=== PATIENT | male | born 1965 | race Caucasian/White ===

== ENCOUNTER 2018-08-07 08:17 | Day surgery (SDC) | payer BC ==
--- NOTE | 2018-07-31 12:03 | RAD REPORT ---
EXAM DESCRIPTION: RAD - Chest Pa And Lat (2 Views) - 07/31/2018 11:56 am CLINICAL HISTORY: PREOP Chest pain. COMPARISON: No comparisons FINDINGS: The lungs are clear. The heart is normal in size. No displaced fractures. IMPRESSION: No acute or concerning finding suspected.
[2018-07-31 12:37] LABS: Potassium 4.3 mmol/L (3.5-5.1)
[2018-07-31 12:48] LABS: Absolute Lymphocytes (CBC) 1.9 K/uL (0.7-4.9); Absolute Monocytes 0.8 K/uL (0.1-1.3); Absolute Neutrophil 5.8 K/uL (1.8-8.0); Basophils % 0.5 % (0-1.3); Hematocrit 46.5 % (39.6-49.0); Lymphocytes % 21.6 % (15.3-44.8); MCH 31.9 pg (27.0-35.0); MCV 91.1 fL (80-100); MPV 9.3 fL (7.6-11.3); Monocytes % 9.1 % (3.3-12.3); RBC Red Blood Cell Count 5.11 M/uL (4.33-5.43)
--- OUTSIDE RECORDS SUMMARY | 2018-08-07 08:21 | XMS REPORT ---
:1965 Author Organization eClinicalWorks Care Team Providers Name Role Phone Juan Diego [facility] Provider Role Unavailable Allergies No Known Allergies Problems Problem Type Condition Code Onset Dates Condition Status Problem Erectile dysfunction N52.9 Active Problem Hypogonadism in male E29.1 Active Problem GERD (gastroesophageal reflux K21.9 Active disease) Assessment GERD (gastroesophageal reflux K21.9 Active disease) Assessment Hypogonadism in male E29.1 Active Assessment Erectile dysfunction N52.9 Active Medications Medication Code Code Instructions Start End Status Dosage System Date Date Viagra [facility] 73657068811 100 MG Orally October Inactive 1 tablet Once a day , as needed 2017 Prilosec [facility] 23925448473 20 MG Orally Active 1 capsule Once a day Cialis [facility] 78335130436 20 MG Orally October Active 1 tablet once a day 2017 Testosterone [facility] 70661451317 100 MG/ML Active 1 ml Cypionate Intramuscular Results No Known Results Summary Purpose eClinicalWorks Submission
--- OUTSIDE RECORDS SUMMARY | 2018-08-07 08:21 | XMS REPORT ---
:1965 Author Organization eClinicalWorks Care Team Providers Name Role Phone Juan Diego [facility] Provider Role Unavailable Allergies No Known Allergies Problems Problem Type Condition Code Onset Dates Condition Status Problem Erectile dysfunction N52.9 Active Problem Hypogonadism in male E29.1 Active Problem GERD (gastroesophageal reflux K21.9 Active disease) Medications Medication Code System Code Instructions Start End Date Status Dosage Date Scopolamine [facility] 72965590427 1 MG/3DAYS December 29, January 28, Active apply 1 Transdermal DO 2017 2017 patch 4 NOT CUT PATCH hours every 3 days as prior to needed event/acti vity. Results No Known Results Summary Purpose eClinicalWorks Submission
--- OUTSIDE RECORDS SUMMARY | 2018-08-07 08:21 | XMS REPORT ---
:1965 Author Organization eClinicalWorks Care Team Providers Name Role Phone Juan Diego [facility] Provider Role Unavailable Allergies No Known Allergies Problems Problem Type Condition Code Onset Dates Condition Status Assessment Prediabetes R73.03 Active Problem Erectile dysfunction N52.9 Active Problem Hypogonadism in male E29.1 Active Problem GERD (gastroesophageal reflux K21.9 Active disease) Assessment Erectile dysfunction N52.9 Active Assessment GERD (gastroesophageal reflux K21.9 Active disease) Assessment Hypogonadism in male E29.1 Active Medications Medication Code Code Instructions Start End Status Dosage System Date Date Victoza [facility] [address]-83 18 MG/3ML Active as Subcutaneous directed Testosterone [facility] 52102291630 100 MG/ML Active Inject 1 Cypionate Intramuscular ml Once a week Prilosec [facility] 24210319727 20 MG Orally Active 1 capsule Once a day Results No Known Results Summary Purpose eClinicalWorks Submission
--- OUTSIDE RECORDS SUMMARY | 2018-08-07 08:21 | XMS REPORT ---
:1965 Author Organization eClinicalWorks Care Team Providers Name Role Phone Navjot Little Provider Role Unavailable Allergies No Known Allergies Problems Problem Type Condition Code Onset Dates Condition Status Problem Tear of left rotator cuff, M75.102 Active unspecified tear extent Problem GERD (gastroesophageal reflux K21.9 Active disease) Problem Incomplete tear of right rotator M75.111 Active cuff Problem Erectile dysfunction N52.9 Active Problem Hypogonadism in male E29.1 Active Medications No Known Medications Results No Known Results Summary Purpose eClinicalWorks Submission
--- OUTSIDE RECORDS SUMMARY | 2018-08-07 08:21 | XMS REPORT ---
:1965 Author Organization eClinicalWorks Care Team Providers Name Role Phone Navjot Little Provider Role Unavailable Allergies, Adverse Reactions, Alerts Substance Reaction Event Type N.K.D.A. Info Not Available Non Drug Allergy Problems Problem Type Condition Code Onset Dates Condition Status Assessment Tear of left rotator cuff, M75.102 Active unspecified tear extent Assessment Pain in joint of right shoulder M25.511 Active Assessment Incomplete tear of right rotator M75.111 Active cuff Problem Tear of left rotator cuff, M75.102 Active unspecified tear extent Problem GERD (gastroesophageal reflux K21.9 Active disease) Problem Incomplete tear of right rotator M75.111 Active cuff Assessment Pain in joint of left shoulder M25.512 Active Problem Erectile dysfunction N52.9 Active Problem Hypogonadism in male E29.1 Active Assessment Right elbow pain M25.521 Active Assessment Lateral epicondylitis of right M77.11 Active elbow Assessment Bicipital tendinitis of right M75.21 Active shoulder Assessment Bicipital tendinitis of left M75.22 Active shoulder Medications Medication Code Code Instructions Start End Status Dosage System Date Date Testosterone [facility] 15702010702 100 MG/ML Active Inject 1 ml Cypionate Intramuscular Once a week Victoza [facility] 38998003704 18 MG/3ML Active as directed Subcutaneous Results Name Result Date Reference Range Unit Abnormality Flag mri left shoulder w/out contrast Summary Purpose eClinicalWorks Submission
[2018-08-07] MEDS ORDERED: PROPOFOL 200 MG/20 ML VIAL IV ONE (08:46)
[2018-08-07] MEDS ORDERED: ROCURONIUM 50 MG/5 ML VIAL IV ONE (08:46)
[2018-08-07] MEDS ORDERED: LIDOCAINE 2% MPF 5 ML VIAL ONE (08:46)
[2018-08-07] MEDS ORDERED: MIDAZOLAM HCL 2 MG/2 ML INJ ONE ×3 (08:46→09:54)
[2018-08-07] MEDS ORDERED: FENTANYL CITR 250 MCG/5 ML ONE (08:46)
[2018-08-07 09:43] LABS: Protime INR 0.98
[2018-08-07] MEDS ORDERED: Ringers Lactate 1,000 ML IV ONE ×2 (09:49→11:47)
[2018-08-07] MEDS ORDERED: CEFAZOLIN 2GM (PREMIX IV) 2 GM/50 ML BAG ONE (09:49)
[2018-08-07] MEDS ORDERED: FENTANYL CITR 100 MCG/2 ML ONE (09:55)
[2018-08-07] MEDS ORDERED: DEXAMETHASONE 4 MG/ML VIAL ONE (09:55)
[2018-08-07] MEDS ORDERED: ROPLVACAINE HCL 20 ML ONE (09:56)
[2018-08-07] MEDS ORDERED: EPINEPHRINE/PF 1 MG/ML AMP ONE (10:39)
[2018-08-07] MEDS ORDERED: Phenylephrine HCl 10 MG/ML 1 ML VIAL ONE (11:27)
[2018-08-07] MEDS ORDERED: GLYCOPYRROLATE 0.2 MG/ML SYR ONE (12:39)
[2018-08-07] MEDS ORDERED: EPHEDRINE SULF 50 MG/10 ML SYR ONE (12:51)
[2018-08-07] MEDS ORDERED: KETOROLAC 30 MG/ML INJ ONE (13:23)
--- NOTE | 2018-08-07 13:47 | P.BOP ---
Preoperative diagnosis: left shoulder rotator cuff tear, bicipital tenosynovitis Postoperative diagnosis: same, left shoulder impingement, SLAP tear Primary procedure: left shoulder arthroscopic rotator cuff repair with biceps tenodesis Secondary procedure: left shoulder arthroscopic SLAP debridement, subacromial decompression Other procedure(s): left shoulder open subpectoral biceps tenodesis Thermospray Operator: NONE,NONE Estimated blood loss: 20 cc Specimen: none Findings: see dictation Anesthesia: General Complications: None Implants: 5.5 mm Arthrex corkscrew, 4.75 mm Arthrex swivelock Fluids & blood products: per anesthesia record Transferred to: Recovery Room Condition: Good
[2018-08-07] MEDS ORDERED: ONDANSETRON 4 MG/2 ML VIAL ONE (14:08)
--- NOTE | 2018-08-07 14:22 | RAD REPORT ---
EXAM DESCRIPTION: RAD - Shoulder 1 View - 08/07/2018 2:14 pm CLINICAL HISTORY: S/P (L) RCR/BICEPS TENDONITIS COMPARISON: Shoulder Left Wo Cont dated 06/05/2018 FINDINGS: Single AP postoperative projection left shoulder is submitted. Mild AC joint degenerative changes. No concerning bone or joint abnormality.
[2018-08-07] MEDS ORDERED: HYDROCODONE/APAP 7.5/325 MG TAB ONE (14:39)
--- NOTE | 2018-08-10 08:58 | OP ---
Date of Procedure: 08/07/2018 Surgeon: Navjot Little MD Preoperative Diagnoses: 1. Left shoulder rotator cuff tear. 2. Left shoulder bicipital tenosynovitis. 3. Left shoulder impingement syndrome. Postoperative Diagnoses: 1. Left shoulder rotator cuff tear. 2. Left shoulder bicipital tenosynovitis. 3. Left shoulder impingement syndrome. 4. Left shoulder SLAP tear. Procedures Performed: 1. Left shoulder arthroscopic rotator cuff repair. 2. Left shoulder arthroscopic SLAP tear debridement. 3. Left shoulder arthroscopic subacromial decompression. 4. Left shoulder open subpectoral biceps tenodesis. Anesthesia: General endotracheal. Fluids: Per Anesthesia record. Ebl: 20 cc. Complications: None. Implants: 1. A 5.5 mm Arthrex corkscrew. 2. One 4.75 mm Arthrex SwiveLock. 3. A 7 x 19.5 Arthrex Bio-Tenodesis screw. Indication For Procedure: Holger is a 53-year-old male, presented to my clinic with physial exam findings and MRI findings consistent with a left shoulder rotator cuff tear, bicipital tenosynovitis. I discussed with the patient at length risks and benefits associated with operative and nonoperative treatment. He expressed understanding and elected to proceed with operative treatment. Description Of Procedure: After informed consent was obtained, the patient was identified in the preoperative holding area. The left upper extremity was marked. The patient underwent an interscalene block to his left upper extremity performed by Anesthesia in the recovery room. He was then transferred back to the operating room, transferred to the operating table in supine fashion and placed under general endotracheal anesthesia. He was then placed in the beach chair position with extremities well padded. The left upper extremity was examined. The patient had full range of motion with no instability noted in left shoulder joint. The left upper extremity was then prepped and draped in usual sterile fashion. A time-out was initiated. Correct patient and procedure were confirmed and identified. The patient did receive his preoperative prophylactic antibiotic. With the posterior portal position, a spinal needle was introduced and the patient underwent injection of 30 cc of normal saline in the posterior portal position in the glenohumeral joint to distend the capsule. A posterior portal was then created and an arthroscope was brought in the posterior portal position. A diagnostic arthroscopy was performed. An anterior portal was also made and a cannula was placed. The patient was noted to have overall pristine cartilage in the humeral head and glenoid surface. He was noted to have a type 2 SLAP tear with instability of the superior labrum as well as some fraying and partial tear of the biceps tendon at its anchor. Biceps tenotomy was performed and the SLAP tear was then debrided using an arthroscopic shaver. Anterior and posterior labrum were found to be stable to probe. There were no loose bodies within the axillary pouch. Subscapularis was found to be intact. The rotator cuff was then evaluated and there was noted to be some partial-thickness tears on the undersurface of the supraspinatus and was marked using a spinal needle from the lateral portal position as well as a PDS suture. The arthroscope was then brought to the subacromial space and subacromial bursectomy was performed. The tissue was very friable and erythematous, hemostasis was achieved using radiofrequency ablation. After the bursectomy was performed, it was noted that where the prior marked rotator cuff tendon, there was significant amount of erythema and non-healthy tissue on the bursal side of the rotator cuff. When probed with an obturator, it was noted that there was some tearing indicated with the articular surface in the supraspinatus. An arthroscopic shaver was then used to debride the damaged and nonviable tissue and the rotator cuff tear was fully identified. Once debrided, there was a crescent type pattern. A medial row anchor was placed before making stab incision just lateral to the acromion. A 5.5 mm corkscrew was then placed, which was double loaded. The sutures were then passed through the rotator cuff tear using a scorpion suture passer in a horizontal mattress-type fashion and the medial row sutures were then tied without complication with overall good reduction of the supraspinatus on the greater tuberosity. Greater tuberosity had been prepared using an arthroscopic shaver to creat a bleeding bony bed prior to placement of the corkscrew. After the sutures were tied, a single lateral anchor was then selected to tank setter helper with further fixation of the rotator cuff tear and a 4.75 mm SwiveLock was placed. There has been overall reduction of the supraspinatus on the greater tuberosity. Radiofrequency ablator was then used to clean off the soft tissue off the undersurface of the acromion. It was noted that the patient did have a spur over the anterior lateral acromion as well as some of the fraying of the coracoacromial ligament. Subacromial decompression was performed. Again, using the radiofrequency ablator, we cleaned off soft tissue off the undersurface of the acromion and performing an acromioplasty with arthroscopic bur. Once this was completed, arthroscopic instruments were then removed and attention was then taken to performing the tenodesis. Approximately 3 cm longitudinal incision was made just medial to the insertion of the pec tendon with the john. Dissection was first taken at the incision with the fascia which was split, divided. Pec tendon was then retracted superiorly and the long head of the biceps tendon was found. It was brought out through the incision and was whipstitched for 3 cm just distal to musculotendinous junction. The remaining tendon was cut and removed within the bicipital groove just proximal to the pec insertion. A guide pin was then introduced through the bicipital tunnel followed by an 8-mm reamer to create a unicortical tunnel. Once the reamer was removed, one of the sutures was fed through the 7 mm Bio-Tenodesis screw. It was put into position along with the tendon within the tunnel and good fixation of tendon as well. The sutures were then tied over the tenodesis screw The remaining sutures were cut. The wounds were then irrigated thoroughly with normal saline. Subcutaneous tissue was approximated using a 2-0 Vicryl. Skin was approximated using a 3-0 Monocryl. Sterile dressings were applied. The patient was placed in a shoulder immobilizer, awakened, transferred to PACU in stable condition. Postoperative Plan: The patient will follow a medium rotator cuff repair protocol at 2 weeks postoperatively with tenodesis protocol. He will follow up next week for check. ELLI/VIC Voice ID: [id number] Report ID: [id number] PARVIZ
== END 2018-08-07 15:20 | disposition home or self-care (01) ==
LOC: OR 08:17
PROVIDERS: ATTEND Orthopaedic Surgery Sports Medicine
PROC: 0RHK44Z Insertion of Internal Fixation Device into Left Shoulder Joint, Percutaneous Endoscopic Approach (ICD-10-PCS; 2018-08-07)
PROC: 0RNK4ZZ Release Left Shoulder Joint, Percutaneous Endoscopic Approach (ICD-10-PCS; 2018-08-07)
PROC: 0LS20ZZ Reposition Left Shoulder Tendon, Open Approach (ICD-10-PCS; 2018-08-07)
PROC: 0LQ24ZZ Repair Left Shoulder Tendon, Percutaneous Endoscopic Approach (ICD-10-PCS; principal; 2018-08-07 09:45)
DX: M75.112 Incomplete rotator cuff tear or rupture of left shoulder, not specified as traumatic (principal); M75.22 Bicipital tendinitis, left shoulder; M75.42 Impingement syndrome of left shoulder; S43.432A Superior glenoid labrum lesion of left shoulder, initial encounter; X58.XXXA Exposure to other specified factors, initial encounter
CPT/HCPCS: 36415; 71046; 73020; 80048; 82962; 85025; 85610; 85730; J0171; J0690; J2250; J2370; J2405; J2704; J2795; J3010